=== PATIENT | female | born 1955 | race Caucasian/White ===

== ENCOUNTER → 2016-08-29 | Outpatient (CLI) | payer BC ==
--- NOTE | 2016-08-29 13:45 | MAMMOGRAPHY REPORT ---
BILATERAL DIGITAL DIAGNOSTIC MAMMOGRAM TOMOSYNTHESIS WITH CAD: 08/29/2016 CLINICAL HISTORY: Short interval follow-up of left breast calcifications. Due for routine mammograp hy of the right breast. TECHNIQUE: Breast tomosynthesis in addition to standard 2D mammography was performed. Current study was also evaluated with a Computer Aided Detection (CAD) system. Bilateral CC and MLO 2-D and leila synthesis images and spot magnification left CC and ML views were obtained. COMPARISON: Comparison is made to exams dated: 02/26/2016 mammogram, 08/28/2015 mammogram, 08/18/2015 m ammogram, 08/28/2015 ultrasound, 08/17/2014 mammogram, and 08/16/2013 mammogram - [facility] enter. BREAST COMPOSITION: There are scattered areas of fibroglandular density in both breasts. FINDINGS: Again noted is a lobulated circumscribed 11 mm mass seen within the left upper inner quad rant, which demonstrates internal layering calcification, and was previously shown to represent a be nign cyst on the prior 2015 ultrasound exam. Again noted are several groupings and clusters of calc ifications within the left breast, many of which demonstrate layering on the lateral view. The smal l 2 mm cluster of punctate benign-appearing calcifications in the left upper outer quadrant is stabl e on spot magnification views dating back to August 2015, and in retrospect are likely present dejuan ing back to the 2011 exam on the cc view. Given the morphology and long-term stability, the calcifi cations are considered benign. The other previously described grouped calcifications in the left up per outer quadrant are also stable compared to spot magnification views dating back to August 2015 , and in retrospect are likely stable dating back to the 2013 exam. On the current exam, the majori ty of the calcifications demonstrate layering, consistent with benign milk of calcium. No new or in creasing calcifications are noted on the current spot magnification views. The remainder of both breasts are stable compared to prior exams, without suspicious masses, calcifi cations, or areas of architectural distortion noted. Other bilateral benign-appearing calcification s are not significantly changed. IMPRESSION: ACR BI-RADS CATEGORY 2: BENIGN Groupings of calcifications in the left breast are stable on spot magnification views dating back to August 2015; the majority of the calcifications demonstrate layering, consistent with benign milk of calcium. The calcifications are considered benign given the morphology and stability. There is no mammographic evidence of malignancy in either breast. A 1 year screening mammogram is recommende d. The patient has been verbally notified of the results. Approximately 10% of breast cancers are not detected with mammography. A negative mammographic repor t should not delay biopsy if a clinically suggestive mass is present. Sammi Devlin M.D. ah/:08/29/2016 09:27:31 Lead Recreation Assistant: Corry JACOBS(R)(M), [facility] letter sent: Normal 1/2 BI-RADS Code: ACR BI-RADS Category 2: Benign
== END | disposition home or self-care (01) ==
LOC: C.MAMM 08:50
PROVIDERS: ATTEND Nurse Practitioner
DX: R92.1 Mammographic calcification found on diagnostic imaging of breast (principal)

== ENCOUNTER → 2017-03-19 | Outpatient (CLI) | payer BC | END | disposition home or self-care (01) | LOC: C.PATHSPEC 17:49 | PROVIDERS: ATTEND Nurse Practitioner | DX: D22.9 Melanocytic nevi, unspecified (principal) ==

== ENCOUNTER → 2017-06-19 | Outpatient (CLI) | payer BC ==
[2017-06-19 10:41] LABS: HEMATOCRIT 42.4 % (37-47); MEAN CELL VOLUME 90.6 fL (80-100); MEAN CORPUSCULAR HEMOGLOBIN 30.8 pg (25-34); MEAN PLATELET VOLUME 10.6 fL (7.4-10.4); PLATELET COUNT 179 K/uL (130-400); RED BLOOD COUNT 4.68 M/uL (4.2-5.4); WHITE BLOOD COUNT 5.03 K/uL (4.8-10.8)
[2017-06-19 11:22] LABS: THYROID STIMULATING HORMONE 3.13 uIu/ml (0.300-4.500)
== END | disposition home or self-care (01) ==
LOC: C.LAB1850 09:42
PROVIDERS: ATTEND Nurse Practitioner
DX: E07.9 Disorder of thyroid, unspecified (principal); R73.01 Impaired fasting glucose

== ENCOUNTER → 2018-02-26 | Outpatient (CLI) | payer OTHER ==
[2018-02-26 17:33] LABS: BASO % 0.3 %; BASO ABS # 0.03 K/uL (0-0.2); HEMATOCRIT 41.1 % (37-47); IG# 0.02 K/uL (0.00-0.02); LYMPH % 14.9 %; LYMPH ABS # 1.53 K/uL (1.2-3.4); MEAN CELL VOLUME 87.4 fL (80-100); MEAN CORPUSCULAR HEMOGLOBIN 29.8 pg (25-34); MEAN CORPUSCULAR HGB CONC 34.1 g/dl (32-36); MEAN PLATELET VOLUME 10.7 fL (7.4-10.4); MONO % 7.7 %; MONO ABS # 0.79 K/uL (0.11-0.59); NEUT % 75.9 %; NEUT ABS # 7.83 K/uL (1.4-6.5); PLATELET COUNT 210 K/uL (130-400); RED CELL DISTRIBUTION WIDTH CV 14.2 % (11.5-14.5); RED CELL DISTRIBUTION WIDTH SD 45.8 fL (36.4-46.3)
[2018-02-26 17:42] LABS: BLOOD UREA NITROGEN 11 mg/dl (7-18); CALCIUM 9.1 mg/dl (8.5-10.1); CARBON DIOXIDE 27 mmol/L (21-32); CREATININE 1.12 mg/dl (0.60-1.20); GLUCOSE 103 mg/dl (70-99); POTASSIUM 3.6 mmol/L (3.5-5.1); SODIUM 142 mmol/L (136-145)
== END | disposition home or self-care (01) ==
LOC: C.LAB1850 16:13
PROVIDERS: ATTEND Nurse Practitioner
DX: R19.7 Diarrhea, unspecified (principal); R10.84 Generalized abdominal pain

== ENCOUNTER → 2018-02-28 | Outpatient (CLI) | payer OTHER | END | disposition home or self-care (01) | LOC: C.LAB 10:21 | PROVIDERS: ATTEND Nurse Practitioner | DX: R19.7 Diarrhea, unspecified (principal); R10.84 Generalized abdominal pain ==

== ENCOUNTER → 2018-03-02 | Outpatient (CLI) | payer OTHER ==
[~2018-03-02] MED LIST: OPTIRAY 320 IV PRN
--- NOTE | 2018-03-02 14:09 | DIAGNOSTIC IMAGING REPORT ---
CT ABD/PELVIS IV AND ORAL CONT CLINICAL HISTORY: R19.7 [id number] Abdominal pain, diffuse COMPARISON STUDY: None. TECHNIQUE: Following the IV administration of 93 mL of Optiray-320, CT scan of the abdomen and pelvis was performed from the lung bases to the proximal femurs. Images are reviewed in the axial, sagittal, and coronal planes. IV contrast was administered without complication. A dose lowering technique was utilized adhering to the principles of ALARA. CT DOSE: 793.93 mGycm FINDINGS: Lower chest: The heart is normal in size and configuration, without pericardial effusion. The lung bases and pleural spaces are clear. Liver: There is mild hepatic steatosis. No focal masses are visualized. Gallbladder: Cholelithiasis Spleen: Normal in size and attenuation. Pancreas: Unremarkable. Adrenal glands: There is a 14 mm left adrenal nodule with Hounsfield attenuation value of 75 Kidneys: There is a nonobstructing 4 mm right renal calculus. There are left parapelvic cysts. There is a 7 mm left renal cortical cyst. There is no significant hydronephrosis. Bowel: There are no transition zones indicate bowel obstruction. Although the appendix is enlarged measuring 8 mm, there is gas within the lumen and there are no periappendiceal inflammatory changes. This is felt to represent a normal variant. There is colonic diverticulosis. There are minor peridiverticular inflammatory changes within the sigmoid. Peritoneum: There is no intraperitoneal free air or abdominal ascites. Vasculature: The abdominal aorta is normal in course and caliber. Adenopathy: There is subtle increased density of the central mesenteric fat with minimally prominent mesenteric lymph nodes, likely representing a mild nonspecific mesenteritis. Pelvic viscera: The bladder, and pelvic viscera are unremarkable. Skeletal structures: No destructive osseous lesions are seen. IMPRESSION: 1. Very subtle sigmoid diverticulitis 2. No evidence of bowel obstruction. No evidence of free air 3. No evidence of acute appendicitis 4. Cholelithiasis 5. Subtle increased density of the central mesentery with mildly prominent mesenteric lymph nodes, likely representing a mild mesenteritis Electronically signed by: Angelito Yan M.D. 03/02/2018 2:08 PM Dictated Date/Time: 03/02/2018 1:59 PM
== END | disposition home or self-care (01) ==
LOC: C.CTS 13:13
PROVIDERS: ATTEND Nurse Practitioner
DX: R19.7 Diarrhea, unspecified (principal); R10.84 Generalized abdominal pain